=== PATIENT | female | born 1955 ===

== ENCOUNTER 2017-05-12 12:04 | Day surgery (SDC) | payer MEDICAID ==
[2017-05-09 16:31] VITALS: BMI 26.6
[2017-05-12] MEDS ORDERED: Bupivacaine 0.5% Inj(30mL) IJ ONE (13:33)
[2017-05-12] MEDS ORDERED: ceFAZolin IV 2 gm in Dextrose 2 GM/50 ML BAG IVPB ONE (13:33)
--- NOTE | 2017-05-12 13:33 | CP.PCM.PN ---
Subjective - Date & Time of Evaluation Date of Evaluation: 05/12/17 Time of Evaluation: 13:33 - Subjective Subjective: 62 y/o female seen at bedside in [facility] prior to left foot surgery. Pt confirms she has not had anything to eat since last night, and had approx 3 oz of water early this morning. Pt states she feels well today. Pt denies F/C/N/V/CP/SOB. Pt is ready for her surgery and says she has been trained on crutches and brought her surgical boot. PMH: glaucoma PSH: cholecystectomy, appendectomy, bilateral foot surgeries, bilateral knee replacements with right side revision All: codeine Social: social EtOH; denies cigarette or illicit drug use Objective - Vital Signs/Intake and Output Vital Signs (last 24 hours): Temp Pulse Resp BP Pulse Ox 58 L 05/12/17 12:38 - Constitutional Appears: Well, Non-toxic, No Acute Distress - Extremities Exam Additional comments: Left lower extremity focused examination: Vasc: DP/PT pulses 2/4. Temp gradient warm to cool. CFT < 3 sec to all digits. No pedal edema Derm: Prior surgical scars noted to dorsum of 1st MPJ and 4th MPJ. No open lesions, no erythema, no maceration, no clinical signs of infection Neuro: Protective sensation grossly intact Ortho: Tenderness to palpation of previous surgical scar at 1st MPJ. No tenderness elicited to palpation of 4th MPJ. Dorsally drifting 4th toe. - Neurological Exam Neurological Exam: Alert, Awake, Oriented x3 - Psychiatric Exam Psychiatric exam: Normal Affect, Normal Mood Assessment and Plan - Assessment and Plan (Free Text) Assessment: 62 y/o female in [facility] prior to left foot surgery with 4th metatarsal Sina osteotomy and hallux non-union repair Plan: Pt was seen and examined in [facility] Pt NPO status was confirmed All Pre-op testing and clearance was in the chart Pt has exhausted all conservative treatment at this time and is opting for surgical intervention Pt was explained procedure and post-operative course All pt's questions were answered to satisfaction No guarantees were made Pt understands all risks, benefits and complications of procedure Pt will follow-up with Dr. Clarke
--- NOTE | 2017-05-12 13:33 | CP.SDSHP ---
Same Day Surgery H & P - History Proposed Procedure: left foot removal of hardware, chondylectomy, 4th metatarsal Sina osteotomy Pre-Op Diagnosis: left foot proximal hallux non-union, left foot 4th metatarsophalangeal joint subluxation - Previous Medical/Surgical History Pain: 4.Moderate Pain Previous Surgical History: cholecystectomy, appendectomy, bilateral foot surgery , bilateral knee replacement - Allergies Allergies: Allergies codeine Allergy (Verified 05/09/17 16:31) RASH - Physical Exam General Appearance: well nourished Vital Signs: Vital Signs 05/12/17 12:38 Pulse Rate 58 L Mental Status: Alert & Oriented x3 Neuro: WNL Heart: WNL Lungs: WNL - {Optional Preform as Required} Integument: Other (surgical scars at dorsum of left foot 1st and 4th MPJ) Ortho: Other (tenderness to palpation of dorsum of 1st MPJ left foot) - Impression Impression: Pt was seen and examined in [facility]. Pt NPO status was confirmed. All Pre-op testing and clearance was in the chart. Pt has exhausted all conservative treatment at this time and is opting for surgical intervention. Pt was explained procedure and post-operative course. All pt's questions were answered to satisfaction. No guarantees were made. Pt understands all risks, benefits and complications of procedure. Pt will follow-up with Dr. Clarke - Date & Time Date: 05/12/17 Time: 19:20 Short Stay Discharge - Short Stay Discharge Admitting Diagnosis/Reason for Visit: S92.812/M25.775/M21.862 Disposition: HOME/ ROUTINE Referrals: Ada Kumari MD [Primary Care Provider] - Instructions: RICE Therapy (GEN), Cephalexin (By mouth), Oxycodone/ Acetaminophen (By mouth) Additional Instructions (Diet, Activity): Patient in good/stable condition for discharge home Pt to resume medications per medical reconciliation Resume regular diet Please keep dressing clean, dry, & intact to surgical site, use plastic bag over bandage for showering Wear post op shoe at all times when ambulating Call clinic if you see signs of infection (redness, swelling, malodor) Please make an appointment to see Dr. Clarke in clinic within 1 week for post- op check. Progress Note/Discharge Note with Instructions: Patient evaluated bedside in recovery s/p surgical procedure. - After surgical procedure patient in NAD - (+) Void, (+) Appetite - Capillary refill time <3s and NVSI intact. - Patient denies complaints at this time - Post operative instructions and plan of care explained to patient at length. - Pt. acknowledges understanding. - Patient stable for DC per podiatric surgery
[2017-05-12] MEDS ORDERED: Dexamethasone 4 mg/1 ml ONE (13:34)
[2017-05-12] MEDS ORDERED: ceFAZolin IV 1 gm in Dextrose 0 GM/0 ML BAG IVPB ONE (13:34)
[2017-05-12] MEDS ORDERED: Lidocaine 1% Inj (20ml) ONE (13:34)
[2017-05-12] MEDS ORDERED: Sodium Chloride 0.9% 1,000 ML IV SCH (13:45)
[2017-05-12] MEDS ORDERED: Midazolam 2 MG/2 ML VIAL ONE (14:06)
[2017-05-12] MEDS ORDERED: Propofol 10 mg/ml Inj (20 ML) ONE (14:06)
[2017-05-12] MEDS ORDERED: Lidocaine 1% 5ml Abboject IV ONE (14:06)
[2017-05-12] MEDS ORDERED: Lactated Ringer's 1,000 ML IV ONE (14:27)
[2017-05-12] MEDS ORDERED: Bupivacaine 0.5% 50 ML IJ ONE (14:30)
[2017-05-12] MEDS ORDERED: ePHEDrine 50 mg/ml Inj ONE (15:10)
[2017-05-12] MEDS ORDERED: Phenylephrine 10 mg/ml Inj ONE (16:18)
[2017-05-12] MEDS ORDERED: Lactated Ringer's 500 ML IV ONE (16:19)
[2017-05-12] MEDS ORDERED: Liquid Adhesive TOP ONE (16:41)
[2017-05-12] MEDS ORDERED: Oxycodone/Acetaminophen 5/325 mg Tab PO PRN ×2 (16:57)
--- NOTE | 2017-05-12 16:57 | PCM.SURG1 ---
Surgeon's Initial Post Op Note - Surgeon's Notes Surgeon: Dr. Luis Clarke Turner Machine: Dr. Drew Gonzalez PGY-2, Dr. Rachana Arango PGY-2 Type of Anesthesia: General LMA, Local Anesthesia Administered By: Dr. Yeung Pre-Operative Diagnosis: left foot proximal hallux non-union, left foot 4th metatarsophalangeal joint subluxation Operative Findings: see operative report. I: 18cc 0.5% Marcaine plain. M: 0.045 K-wire Post-Operative Diagnosis: same Operation Performed: left foot removal of hardware, chondylectomy, 4th metatarsal Sina osteotomy Specimen/Specimens Removed: 2 screws removed from left hallux Estimated Blood Loss: EBL {In ML}: 3 Blood Products Given: N/A Drains Used: No Drains Post-Op Condition: Good Date of Surgery/Procedure: 05/12/17 Time of Surgery/Procedure: 16:57
[2017-05-12 17:33] VITALS: RESP 18
[2017-05-12 19:27] VITALS: BP 147/92; PULSE 64; TEMP 97.8; O2SAT 99
--- NOTE | 2017-05-13 13:12 | RAD ---
PROCEDURE: Left Foot Radiographs. HISTORY: s/p left foot surgery COMPARISON: Left foot radiographs 04/28/2017. FINDINGS: BONES: Interval pin fixation of the 4th metatarsal. Removal of 1st proximal phalanx screws. No acute fracture. Prior distal 4th and 5th proximal phalangeal osteotomies. JOINTS: Multiple hammertoe deformities. SOFT TISSUES: Soft-tissue prominence, likely postsurgical. OTHER FINDINGS: None. IMPRESSION: Interval pin fixation of the 4th metatarsal with associated soft tissue postsurgical changes. Removal of 1st proximal phalanx screws. No other significant interval changes.
--- NOTE | 2017-05-14 01:09 | OP ---
PROCEDURE DATE: 05/12/2017 PREOPERATIVE DIAGNOSES: 1. Left foot proximal phalanx nonunion with painful prominent hardware. 2. Left foot fourth metatarsophalangeal joint painful subluxation with extensive contracture. POSTOPERATIVE DIAGNOSES: 1. Left foot proximal phalanx nonunion with painful prominent hardware. 2. Left foot fourth metatarsophalangeal joint painful subluxation with extensive contracture. PROCEDURES PERFORMED: 1. Left foot proximal hallux surgical intervention of nonunion with excision of hypertrophic bony condyles and removal of surgical hardware. 2. Left foot fourth metatarsal osteotomy with fixation. SURGEON: Luis Clarke DPM ASSISTANTS: Drew Villavicencio PGY2 and Rachana Arango PGY2. TYPE OF ANESTHESIA: MAC IV sedation with local. ANESTHESIA ADMINISTERED BY: Isma Yeung MD INDICATIONS: The patient is a 62-year-old female with the above-stated diagnoses. The patient has exhausted all conservative treatment options at this time and now needs a surgical intervention. The patient signed the surgical consent after careful explanation of risks, benefits, complications, and potential alternatives of the proposed surgical procedure. No guarantees were either given or implied. All the patient's questions were answered to her satisfaction. PREPARATION: The patient's n.p.o. status was confirmed prior to bringing the patient to the operating room. The patient was brought into the operating room and placed on the operating room table in a supine position. A well-padded pneumatic tourniquet was applied in the supramalleolar position to the left ankle and set to 250 mmHg to be inflated once the procedure began. Once IV sedation was confirmed to have been achieved, the patient received a total of 18 mL of 0.5% Marcaine plain in a local block-type fashion to the left foot. Once local anesthetic was confirmed to have been achieved, the patient's left foot was then prepped and draped in the usual sterile manner, tourniquet was inflated, and the procedure began. DESCRIPTION OF PROCEDURE: 1. Left proximal hallux revision of nonunion with excision of hypertrophic lateral condyle and removal of painful prominent hardware. Attention was then directed to the dorsomedial aspect of the first metatarsophalangeal joint where previous keloid scarring secondary to prior surgical intervention was noted. At this time, using a #15 blade, a 5-cm ellipsoid-type incision was made surrounding the linear keloid scar. Once epidermal-dermal tissue was incised, hypertrophic keloid scar was then excised and passed from the operative field. Incision was then extended down through subcutaneous tissue layers with care being taken to avoid all vital neurovascular structures with all bleeders being cauterized and ligated as needed. Fibrous scar tissue was well planed and differentiated using sharp dissection to better define subcutaneous and periosteal tissue planes to allow adequate healing postoperatively and avoid unnecessary scarring. At this time, a linear capsulotomy was made extending from first metatarsal head to midlevel of proximal hallux with care being taken to avoid all tendon structures. Extensor hallucis longus tendon was retracted laterally. The first metatarsal head and base shaft of proximal hallux were then freed of their periosteal capsular attachments. Structures were retracted medially and laterally, thus allowing full visualization of the base of proximal phalanx along with mid shaft of proximal phalanx as well as the head of first metatarsal. At this time, it was noted that two fixation screws noted preoperatively in radial grafts were not visualized in the proximal hallux. At this time, osteotome was utilized to excise overlying cortical bone cap thus revealing the most proximal of proximal hallux fixation screws. It was noted and compared to preoperative x-rays. It is noted that the most distal screw had been displaced through into mid-body substance of proximal phalanx and was likely lying in medullary bone/fibrotic nonunion tissues. Attention was then directed to the first metatarsophalangeal joint, which was distracted to allow full visualization of articular surfaces of both bones. The first metatarsal head was noted to be in excellent condition with no osteochondral defects or degenerative changes to cartilaginous surface. The proximal phalanx was noted to have no intraarticular step-off or depression or osteochondral defects. Enlarged hypertrophic lateral condyle was noted, likely secondary to distraction at nonunion fracture site, but has since been healed with fiber cartilage that allowed excellent range of motion of the joint when assessed with no grinding and full range of motion achieved and visualized intraoperatively. At this time, using [place] periosteal elevator, attempts to find potential bony deficits or weak points in previous nonunion sites were performed allowing access of radiolucency, no deficits were noted and it was noted that though nonunion exists, fibrous connective tissue of adequate density had replaced cortical bone and the fracture site is stably adhered. At this time, with satisfactory stability of proximal hallux, attention was then directed to the dorsomedial cortex to retrieve and remove prominent surgical hardware. The most proximal screw was removed with little event with active fragmentation of screw. At this time, with prior noted nonvisualization of distal screw, previous drill hole was noted, though screw land and head was not visualized. At this time, using a 1.5-mm drill bit and following access of prior drill hole, cortical and medullary trephine holes were created, and once flushed with copious amounts of sterile saline, the head of distal-most screw was appreciated, noted to be lying in medullary canal of proximal hallux. At this time, the screw was removed and passed from the operative field, noted to be nonfragmented nor cracked. The incision sites were then flushed with copious amounts of sterile saline. Periosteal structures were re-approximated using 3-0 Vicryl, subcutaneous tissue layers were re-approximated using 4-0 Vicryl, and subcuticular tissue was re-approximated using 4-0 Prolene in a running suture-type fashion. 2. Fourth metatarsal decompressional osteotomy with fixation. Attention was then directed to the dorsal aspect of the fourth metatarsophalangeal joint, where a 3-cm linear longitudinal incision was made overlying the first metatarsophalangeal joint using a #15 blade. This incision was then extended down to the subcutaneous tissue layers using a combination of sharp and blunt dissection. Care was taken to avoid, identify, and retract all vital neurovascular structures. All bleeders were cauterized and ligated as necessary. At this time, a linear capsular incision was made, thus exposing the head and neck of the fourth metatarsal. Assessing joint range of motion and visualizing, it was noted that extensor digitorum longus tendon was excessively contracted contributing to approximately 30% of subluxation deformity at the fourth metatarsophalangeal joint. This extensor contracture would be addressed after osteotomy was performed to allow adequate soft tissue release to fully reduce deformity. At this time, an oblique osteotomy was created using an oscillating saw starting at distal dorsal surface and exiting plantar proximally, parallel with the weightbearing surface of the fourth metatarsal. Once this osteotomy was created, a second osteotomy oriented dorsally and in parallel line with the original osteotomy was created to allow excision of a bony wedge to allow decompression and dorso-sagittal plane translation of the metatarsal head to reduce subluxation deformity. This wedge was excised and passed from the operative field. At this time, adequate decompression of fourth metatarsal head was appreciated. At this time, using a 0.045-inch K-wire, a fuel pilot engineer hole was created from dorsal to plantar. This K-wire was then removed and passed from the operating field. A 2.0-mm drill was then used following standard AO principles and technique. At this time, attempt was made to introduce a 2.0 x 12-mm screw from dorsal to plantar; however, adequate compression was not achieved, and upon attempting to increase compression, dorsal cortical shelf cracked at the distal aspect and resulting bony deficit would not allow future purchase of dorsal cortical screw. At this time, the incision site was then flushed with copious amounts of sterile saline. Intraoperative decision was made to pass a 0.045-inch K-wire from head of fourth metatarsal originating plantar to digital focus and extending proximally from fourth metatarsal head into fourth metartarsal shaft. This 0.045-inch K-wire was retrograded in this orientation and was found to excellently stabilize the fourth metatarsal head to fourth metatarsal long axis shaft. The incision site was then flushed with copious amounts of sterile saline. At this time, the extensor digitorum longus tendon under went a Z-lengthening tenotomy technique. Once adequate soft tissue length was achieved, the tendon was re-approximated using 3-0 Vicryl. At this time, subluxation of fourth digit was appreciated and found to be greatly improved with greatly improved range of motion of fourth metatarsophalangeal joint. At this time, the incision was then flushed with copious amounts of sterile saline. Capsular structures were re-approximated using 3-0 Vicryl, subcutaneous tissue layers were re-approximated using 4-0 Vicryl, and skin was re-approximated using 4-0 Prolene in a simple suture-type fashion. The surgical site was then dressed with Betadine-soaked Adaptic, 4 x 4 gauze, Kerlix, Colin, and Reginaldo. The patient was placed in posterior splint with Webril *------*. POSTOPERATIVE CONDITION: The patient tolerated the anesthesia and procedures well and was escorted to the recovery room with vital signs stable and neurovascular status intact to the left foot. The patient will follow up on an outpatient basis. Luis Clarke DPM [facility] # [id number] SHON
== END 2017-05-12 19:45 | disposition home or self-care (01) ==
LOC: H.OPSURG 12:04
PROVIDERS: ATTEND Podiatrist Foot & Ankle Surgery
DX: M25.775 Osteophyte, left foot (principal); M21.862 Other specified acquired deformities of left lower leg
CPT/HCPCS: 28288; 28322; 73630; 97161; C1713; G8978; G8979; G8980; J0690; J1885; J2250; J2370; J2704; J3010; J7030; J7040; J7120

== ENCOUNTER 2017-12-01 11:12 | Emergency (ER) | payer MEDICAID ==
[2017-12-01 11:12] VITALS: BMI 26.6
[2017-12-01 11:19] VITALS: PULSE 63; RESP 16; TEMP 98.3; O2SAT 98
--- NOTE | 2017-12-01 11:39 | ED PDOC ---
HPI: Headache Time Seen by Provider: 12/01/17 11:25 Chief Complaint (Nursing): Headache History Per: Patient Onset/Duration Of Symptoms: Days (1) Current Symptoms Are (Timing): Better Severity: Mild Quality: Aching Preceeding Symptoms: None Additional Complaint(s): Referred from podiatry clinic, found to have elevated BP in clinic with sxs of headcahe and dizziness. Denies chest pain SOB or weakness or parasthesias. Past Medical History Vital Signs: Last Vital Signs Temp 98.3 F 12/01/17 11:19 Pulse 63 12/01/17 11:19 Resp 16 12/01/17 11:19 BP 157/90 H 12/01/17 11:19 Pulse Ox 98 12/01/17 11:19 - Medical History PMH: Anemia, Anxiety, Arthritis, Depression, Sleep Apnea - Surgical History Surgical History: Appendectomy - Family History Family History: States: Unknown Family Hx - Home Medications Home Medications: Ambulatory Orders Medication Instructions Recorded Alendronate [Fosamax] 70 mg PO .WEEKLY 05/12/17 Cephalexin [cephalexin] 500 mg PO TID 05/12/17 Cholecalciferol [Vitamin D] 5,000 unit PO .WEEKLY 05/12/17 Fluticasone Nasal [Flonase] 1 spr NS BID 05/12/17 Gabapentin [Neurontin] 100 mg PO TID 05/12/17 Ibuprofen [Motrin Tab] 800 mg PO BID PRN 05/12/17 Latanoprost 0.005% Opht [XALATAN 1 drp OP HS 05/12/17 2.5 Ml] Naproxen [Naprosyn] 500 mg PO BID PRN 05/12/17 oxyCODONE/Acetaminophen [Percocet 1 mg PO Q6 PRN 05/12/17 5/325 mg Tab] - Allergies Allergies/Adverse Reactions: Allergies Allergy/AdvReac Type Severity Reaction Status Date / Time codeine Allergy RASH Verified 12/01/17 11:37 Review of Systems Constitutional: Negative for: Fever Cardiovascular: Negative for: Chest Pain, Palpitations Respiratory: Negative for: Shortness of Breath Neurological: Positive for: Headache, Dizziness. Negative for: Weakness, Numbness Physical Exam - Physical Exam Appears: Positive for: Non-toxic, No Acute Distress Skin: Positive for: Normal Color, Warm, DRY Cardiovascular/Chest: Positive for: Regular Rate, Rhythm Respiratory: Positive for: CNT, Normal Breath Sounds Neurologic/Psych: Positive for: Alert, Oriented. Negative for: Motor/Sensory Deficits - ECG O2 Sat by Pulse Oximetry: 98 - Progress Re-evaluation Time: 13:01 Condition: Improved Disposition - Clinical Impression Clinical Impression: Headache - Patient ED Disposition Is Patient to be Admitted: No Counseled Patient/Family Regarding: Diagnosis, Need For Followup - Disposition Referrals: [facility] [Outside] Disposition: Routine/Home Disposition Time: 13:01 Condition: FAIR Instructions: Headache, Adult Forms: [employer] (Tai[place]ese)
[2017-12-01 12:48] VITALS: BP 146/91
--- NOTE | 2017-12-02 09:33 | CARD ---
APPROVED REPORT EKG Measurement Heart [id number] <Conclusion> Sinus bradycardia Otherwise normal ECG
== END 2017-12-01 13:16 | disposition home or self-care (01) ==
LOC: H.ER 11:12
DX: R51 Headache (principal); F32.9 Major depressive disorder, single episode, unspecified; F41.9 Anxiety disorder, unspecified